=== PATIENT | female | born 1995 | race Caucasian/White ===

== ENCOUNTER 2020-07-08 08:47 | Emergency (ER) | payer OTHER, SELFPAY ==
--- NOTE | ~2020-07-08 | US_ITS ---
EXAMINATION: US renal BI EXAM DATE: 07/08/2020 10:46 INDICATION: Left flank pain. TECHNIQUE: Multiple grayscale and Doppler images of the kidneys were obtained (by a technologist who performed the scan) and subsequently reviewed. There is no prior study for comparison. FINDINGS: Right kidney: There is normal contour and echogenicity. It measures 10.0 x 4.8 x 6.2 centimeters. T here are no focal renal lesions identified. There is no hydronephrosis. Left kidney: There is normal contour and echogenicity. It measures 10.0 x 5.9 x 7.2 centimeters. Th ere are no focal renal lesions identified. Mild left hydronephrosis, however both ureteral jets were confirmed and the bladder. Bladder unremarkable. Intrauterine gestation noted. IMPRESSION: 1. Mild left hydronephrosis, but both ureteral jets confirmed in bladder making ureteral stone unlik lawrence. Reviewed, dictated and finalized at location A. SSING CALENDER OPERATOR IMPRESSION: 1. Mild left hydronephrosis, but both ureteral jets confirmed in bladder neelam dillon ureteral stone unlikely.
--- NOTE | ~2020-07-08 | US_ITS ---
EXAMINATION: US OB limited EXAM DATE: 07/08/2020 12:51 INDICATION: Left lower abdominal pain LLQ PAIN. 2nd trimester. TECHNIQUE: Pelvic obstetrical transabdominal sonogram was performed by a technologist. There are mu ltiple grayscale and Doppler images available for interpretation. There are no earlier studies of th is gestation for comparison. FINDINGS: There is a single fetus identified in breech presentation with a heart rate of 150 beats pe r minute. The placenta is located in the anterior position. There is no sonographic evidence of retr oplacental hemorrhage identified. No adnexal mass identified. IMPRESSION: Live intrauterine gestation, unremarkable placenta. Reviewed, dictated and finalized at location A. ONAL TRAINER
[2020-07-08 09:10] VITALS: BP 119/73; PULSE 76; RESP 21; TEMP 36.3; O2SAT 100
[2020-07-08 09:14] LABS: Basophils Percent Auto 0.3 % (0.2-1.2); Eosinophils Absolute Auto 0.1 K/mm3 (0-0.3); Eosinophils Percent Auto 0.7 % (0-4.4); Hematocrit 33.2 % (37.0-47.0); Hemoglobin 11.3 g/dL (12.0-15.0); Immature Granulocyte Absolute 0.05 K/mm3 (0.00-0.031); Immature Granulocyte Percent A 0.5 % (0-0.5); Lymphocytes Absolute Auto 1.68 K/mm3 (0.9-3.2); Lymphocytes Percent Auto 15.5 % (18.3-44.2); Mean Corpuscular Hemoglobin 31.2 pg (26-34); Mean Corpuscular Volume 91.7 fl (80-100); Monocytes Absolute Auto 0.9 K/mm3 (0.1-0.6); Monocytes Percent Auto 8.5 % (2.6-8.5); Neutrophils Absolute Auto 8.1 K/mm3 (1.3-6.7); Neutrophils Percent Auto 74.5 % (45.5-73.1); Platelet Count Result 209 k/mm3 (150-375); Red Blood Count 3.62 M/mm3 (4.2-5.4); Red Cell Distribution Width 13.8 % (11.5-14.5); White Blood Count 10.9 K/mm3 (4.5-10.0)
[2020-07-08 09:35] LABS: Add Urine Microscopic? YES; Appearance Urine Cloudy (Clear); Bacteria Urine Trace /hpf; Bilirubin Urine Negative (Negative); Blood Urine 3+ (Negative); Color Urine Yellow (Yellow); Glucose Urine UA Negative (Negative); Ketones Urine Negative (Negative); Leukocyte Esterase Ur Negative LEU/UL (Negative); Mucus Urine Rare /lpf; Nitrate Urine Negative (Negative); Protein Urine 1+ mg/dL (Negative); RBC Urine >75 /hpf (0-2); Specific Grav Ur 1.017 (1.001-1.035); Squamous Epithelial Cell Urine Many /hpf (Few); Urobilinogen Urine Negative mg/dL (<2.0); WBC Urine 0-3 /hpf
[2020-07-08 09:47] LABS: Alanine Aminotransferase 92 U/L (4-35); Albumin Level 3.7 g/dL (3.5-5.1); Alkaline Phosphatase 95 U/L (38-126); Anion Gap 6 mmol/L (8-16); Aspartate Amino Transferase 55 U/L (14-36); Bilirubin,Total 0.3 mg/dL (0.2-1.3); Blood Urea Nitrogen 8 mg/dL (7-17); Calcium 9.2 mg/dL (8.4-10.2); Carbon Dioxide 24 mmol/L (22-30); Chloride 105 mmol/L (98-107); Estimated CRCL calculation 120 ml/min; Estimated Glomerular Filt Rate > 60; Glucose 98 mg/dL (65-105); Lipase 57 U/L (23-300); Sodium 135 mmol/L (137-145)
--- NOTE | 2020-07-08 09:58 | ED.BACK ---
HPI - Back Pain/Injury General Chief Complaint: Back Pain/Injury Stated Complaint: back pain/15 wks Time Seen by Provider: 07/08/20 09:25 Source: patient Mode of arrival: ambulatory Limitations: no limitations History of Present Illness HPI Narrative: This patient is a 25 year old female 15 weeks GA who presents for left flank pain. She woke up with intense left lower back pain at 5 am this morning. This pain has been constant and worsening. She states the pain has moved to her left lower abdomen. She has associated nausea but no vomiting or fever. She took tylenol 650 mg at 7 am and she has not gotten any relief in pain. She feels like she needs to urinate but reports she is only urinating small amounts. Her pain is currently 8/10. Her OBGYN is a [facility] Related Data Allergies Allergy/AdvReac Type Severity Reaction Status Date / Time amoxicillin [From Augmentin] Allergy Hives Verified 07/08/20 10:17 clavulanic acid Allergy Hives Verified 07/08/20 10:17 [From Augmentin] Review of Systems Review of Systems: All systems reviewed & are unremarkable except as noted in HPI and below Constitutional: Constitutional: Denies chills and Denies fever(s) Gastrointestinal: Gastrointestinal: Reports abdominal pain, Denies diarrhea, Reports nausea and Denies vomiting Genitourinary: Genitourinary: Denies abnormal vaginal bleeding, Denies hematuria, Denies dysuria and Reports flank pain Musculoskeletal: Musculoskeletal: Reports back pain PMFSH Past Medical History Medical History (Updated 07/08/20 @ 14:45 by Rachell Mckeon MD) Patient denies medical problems Surgical History Surgical History (Updated 07/08/20 @ 10:01 by Rachell Mckeon MD) Hx of appendectomy Social History Social History (Updated 07/08/20 @ 10:01 by Rachell Mckeon MD) Smoking status: Never smoker Gender identity (if verbalized by the patient): Female Exam Const: General: alert Orientation/consciousness: patient oriented x3 Other: patient appears uncomfortable HENMT: Head: atraumatic Face and sinus: face symmetric Mouth: Yes Normal oral and palatal mucosa present, Yes lip normal, Yes oropharynx normal and Yes moist mucous membranes Eyes: EOM: EOMs intact bilaterally Resp: Effort & Inspection: normal respiratory effort, no retractions and no use of accessory muscles Auscultation: clear to auscultation bilaterally Cardio: Rate: regular rate Rhythm: regular rhythm Heart sounds: no murmurs GI: GI Palp: Yes Soft to palpation, Yes Tenderness to palpation present (GI) (LLQ, ), No Guarding due to palpation present (GI) and No Rigid due to palpation Auscultation: normal bowel sounds : General: Yes CVA tenderness on the left Skin: General skin exam: normal color Rashes: no rashes Neuro: General: patient oriented x3 and moves all extremities Extrem: General: normal to inspection Course Reevaluation(s) Reevaluation #1: I have discussed with patient that labs shows hematuria which suggest possible kidney stone as her pain. She appears more comfortable. I have discussed discharge plan with pain medication and antibiotics. Date: 07/08/20 Time: 14:41 Consultations Consultation #1: I discussed case with Dr. rojo and he recommends discharge with tylenol with codeine and keflex. PAtient can follow up on Friday. Date: 07/08/20 Time: 14:42 Vital Signs Vital signs: Vital Signs Temperature 97.4 F L 07/08/20 09:10 Pulse Rate 76 07/08/20 09:10 Respiratory Rate 21 H 07/08/20 09:10 Blood Pressure 119/73 07/08/20 09:10 Pulse Oximetry 100 07/08/20 09:10 Temperature 97.4 F L 07/08/20 09:10 Pulse Rate 79 07/08/20 15:02 Respiratory Rate 20 07/08/20 15:02 Blood Pressure 120/77 07/08/20 15:02 Pulse Oximetry 100 07/08/20 15:02 MDM - Back Pain/Injury Lab Data Attestation: I reviewed the patient's lab results. Result diagrams: 07/08/20 09:05 06/19
[2020-07-08] MEDS: ONDANSETRON INJ 4 MG/2 ML VIAL IV PUSH (10:17)
[2020-07-08] MEDS: MORPHINE SULFATE (*CRX) 4 MG/ML INJ IV PUSH ×2 (10:17→11:05)
[2020-07-08] MEDS: SODIUM CHLORIDE 0.9% IV 1,000 ML 999 ML IV CONT (10:17)
[2020-07-08 10:18] VITALS: BP 107/63; PULSE 77; RESP 18; O2SAT 99
[2020-07-08] MEDS: Please add drug allergy info to patient profile. 1 EACH XX (10:18)
[2020-07-08 11:02] VITALS: BP 104/78; PULSE 78; RESP 20; O2SAT 100
[2020-07-08] MEDS: HYDROmorphone HCL INJ (*CRX) 1 MG/ML SYR IV PUSH (13:44)
[2020-07-08 13:45] VITALS: BP 127/74; PULSE 87; RESP 20; O2SAT 100
[2020-07-08 15:02] VITALS: BP 120/77; PULSE 79; RESP 20; O2SAT 100
== END 2020-07-08 15:17 | disposition home or self-care (01) ==
PROVIDERS: Emergency Provider General Practice; PCP Nurse Practitioner Family
DX: O26.892 Other specified pregnancy related conditions, second trimester (principal); R10.9 Unspecified abdominal pain; R31.9 Hematuria, unspecified; O99.891 Other specified diseases and conditions complicating pregnancy; N13.30 Unspecified hydronephrosis; Z3A.15 15 weeks gestation of pregnancy
CPT/HCPCS: 36415; 76775; 76815; 80053; 81001; 83690; 85025; 96361; 96365; 96375; 96376; 99284; J0131; J1170; J2270; J2405; J7030